=== PATIENT | female | born 2000 | race Caucasian/White ===

== ENCOUNTER 2020-06-30 15:32 | Emergency (ER) | payer OTHER ==
--- NOTE | 2020-06-30 16:09 | PCM.SN.2 ---
- Free Text/Narrative Note: Attending physician note I have seen and evaluated the patient with the advanced practice provider. 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 Since then she has not had problems. She was instructed to come to emergency department anytime she has fever. She has sore throat, mild symptoms of cough, ear fullness and fever. No other associated signs or symptoms. ROS: Reviewed and agree Focused Exam: VITAL SIGNS: Reviewed. GENERAL: Awake, conversant, GCS 15, nontoxic and well-appearing HEAD: No visible signs of trauma EYES: Pupils equal, EOM grossly intact EARS: Hearing grossly intact. MOUTH: No visible lesions, posterior pharyngeal erythema without exudates NECK: Appears supple CHEST: Breathing comfortably, clear lung sounds CARDIAC: Regular rhythm ABDOMEN: Soft, nontender, benign exam NEUROLOGIC EXAM: Awake and Alert, non-focal SKIN: No visible rashes EXTREMITIES: No deformities noted VASCULAR: Appears well perfused Assessment & Plan: Acute febrile illness in patient who has had previous cardiac repair. Reasonable to give empiric penicillin. Test for Covid.
--- NOTE | 2020-06-30 17:19 | EDM.PDOC ---
ED HPI GENERAL MEDICAL PROBLEM - General Chief Complaint: Fever Stated Complaint: FEVER Time Seen by Provider: 06/30/20 15:35 Source of Information: Reports: Patient History Limitations: Reports: No Limitations - History of Present Illness INITIAL COMMENTS - FREE TEXT/NARRATIVE: HISTORY AND PHYSICAL: History of present illness: Patient is a 19 year old female who presents to the ED with c/o fever, bilateral ear pain, sore throat and sinus congestion. She states she was told if she ever had a fever, she had to present to the ED as she has had open cardiac surgery as an infant. No cardiac complications post operatively. Patient denies any neck pain/stiffness, chills, headache, change in vision, syncope or near syncope. Denies any chest pain, back pain, shortness of breath or cough. Denies any GI or symptoms. No concerns for . Patient has been eating and drinking appropriately. Review of systems: As per history of present illness and below otherwise all systems reviewed and negative. Past medical history: As per history of present illness and as reviewed below otherwise noncontributory. Surgical history: As per history of present illness and as reviewed below otherwise noncontributory. Social history: See social history for further information Family history: As per history of present illness and as reviewed below otherwise noncontribut ory. Physical exam: General: Well developed and well nourished. Alert and orientated x 3. Nontoxic in appearance and in no acute distress. Vital signs are stable and have been reviewed by me. Nursing notes were reviewed. HEENT: Atraumatic, normocephalic, pupils equal and reactive bilaterally, negative for conjunctival pallor or scleral icterus, mucous membranes moist, left TMs normal, right TM is erythematous with dull light reflex, throat clear, neck supple, nontender, trachea midline. No drooling or trismus noted. No meningeal signs. No hot potato voice noted. Lungs: Clear to auscultation, breath sounds equal bilaterally, chest nontender. Normal work of breathing, no accessory muscles used. Heart: S1S2, regular rate and rhythm without overt murmur Abdomen: Soft, nondistended, nontender. Negative for masses or costovertebral tenderness. Skin: Intact, warm, dry. No lesions or rashes noted. Hematologic: No petechiae or purpra. Mucosa appropriate color and normal nail bed color and refill. Extremities: Atraumatic, moves all extremities per self without difficulty or deficits, negative for cords or calf pain. Neurovascular unremarkable. Neuro: Awake, alert, oriented. Cranial nerves II through XII unremarkable. Cerebellum unremarkable. Motor and sensory unremarkable throughout. Exam nonfocal. Psychiatric: Mood and affect are appropriate. Normal thought process. Answering questions appropriately. Notes: Blood cultures have been drawn due to her cardiac surgery. Negative strep and COVID screening. Treating the otitis with Augmentin. I have spoken with the patient/caregiver and discussed today's findings, in addition to providing specific details for plan of care. Reassessment at the time of disposition demonstrates that the patient is in no acute distress. The patient has remained stable throughout the entire ED visit and is without objective evidence for acute process requiring urgent intervention or hospitalization. The patient is stable for discharge, counseling was provided and we discussed in great detail signs and symptoms that would prompt them to return to the Emergency Department. Medication, follow up and supportive care measures were reviewed and discussed. Voices understanding and is agreeable to plan of care. Denies any further questions or concerns at this time. Diagnostics: COVID, Strep, BC x 2 Therapeutics: None Prescription: Augmentin Impression: Otitis Media, Right Plan: 1. Take the antibiotic as prescribed. Please use Tylenol and/or Ibuprofen as needed for pain and fever management. 2. Get plenty of Rest. Encourage fluids to prevent dehydration. 3. Please follow up with your primary care provider. Return to the ED as needed as discussed. Definitive disposition and diagnosis as appropriate pending reevaluation and rev iew of above. throat Pain Score (Numeric/FACES): 4 - Related Data Allergies Allergy/AdvReac Type Severity Reaction Status Date / Time No Known Allergies Allergy Verified 06/30/20 15:41 Home Meds: Home Meds Amoxicillin/Clavulanate K [Augmentin 875-125 MG] 1 tab PO BID 10 Days #20 tablet 06/30/20 [Rx] Past Medical History - Past Surgical History Cardiovascular Surgical History: Reports: Other (See Below) Other Cardiovascular Surgeries/Procedures: Open Heart Surgery w/2 VSD &1 ASD Social & Family History - Family History Oncologic: Reports: Brain, Breast, Lung, Skin - Tobacco Use Tobacco Use Status *Q: Never Tobacco User - Recreational Drug Use Recreational Drug Use: No ED ROS ENT - Review of Systems Review Of Systems: Comprehensive ROS is negative, except as noted in HPI. ED EXAM, ENT - Physical Exam Exam: See Below (See dictation) Course - Vital Signs Last Recorded V/S: Last Vital Signs Temp 97.3 F 06/30/20 15:38 Pulse 113 H 06/30/20 15:38 Resp 18 06/30/20 15:38 BP 137/87 06/30/20 15:38 Pulse Ox 98 06/30/20 15:38 - Orders/Labs/Meds Orders: Active Orders 24 hr Category Date Time Status CORONAVIRUS COVID-19 PCR PHL Stat Lab 06/30/20 16:10 Received CULTURE BLOOD [BC] Stat Lab 06/30/20 16:00 Received CULTURE BLOOD [BC] Stat Lab 06/30/20 16:10 Received CULTURE STREP A CONFIRMATION [RM] Stat Lab 06/30/20 16:10 Results STREP SCRN A RAPID W CULT CONF [RM] Stat Lab 06/30/20 16:10 Results Blood Culture x2 Reflex Set [OM.PC] Stat Oth 06/30/20 15:46 Ordered Labs: Laboratory Tests 06/30/20 Range/Units 16:10 SARS CoV-2 RNA Rapid VALERIO NEGATIVE (NEGATIVE) Departure - Departure Time of Disposition: 17:19 Disposition: Home, Self-Care 01 Clinical Impression: Otitis media Qualifiers: Otitis media type: suppurative Chronicity: acute Laterality: right Recurrence: non-recurrent Spontaneous tympanic membrane rupture: without spontaneous rupture Qualified Code(s): H66.001 - Acute suppurative otitis media without spontaneous rupture of ear drum, right ear - Discharge Information Prescriptions: Amoxicillin/Clavulanate K [Augmentin 875-125 MG] 1 tab PO BID 10 Days #20 tablet Instructions: Otitis Media, Adult, [id number] Referrals: PCP,None [Primary Care Provider] - Forms: ED Department Discharge Additional Instructions: The following information is given to patients seen in the emergency department who are being discharged to home. This information is to outline your options for follow-up care. We provide all patients seen in our emergency department with a follow-up referral. The need for follow-up, as well as the timing and circumstances, are variable depending upon the specifics of your emergency department visit. If you don't have a primary care physician on staff, we will provide you with a referral. We always advise you to contact your personal physician following an emergency department visit to inform them of the circumstance of the visit and for follow-up with them and/or the need for any referrals to a consulting specialist. The emergency department will also refer you to a specialist when appropriate. This referral assures that you have the opportunity for follow-up care with a specialist. All of these measure are taken in an effort to provide you with optimal care, which includes your follow-up. Under all circumstances we always encourage you to contact your private physician who remains a resource for coordinating your care. When calling for follow-up care, please make the office aware that this follow-up is from your recent emergency room visit. If for any reason you are refused follow-up, please contact the Emergency Department at and asked to speak to the emergency department charge nurse. Primary Care [address] [place] [address] [place] [address] Thank you for choosing the [facility] emergency department in [place] for your medical needs today. It was a pleasure caring for you. Today you were seen in the emergency department for fever, ear, throat and sinus pain. 1. Take the antibiotic as prescribed. Please use Tylenol and/or Ibuprofen as needed for pain and fever management. 2. Get plenty of Rest. Encourage fluids to prevent dehydration. 3. Please follow up with your primary care provider. Return to the ED as needed as discussed. Sepsis Event Note (ED) - Evaluation Sepsis Screening Result: Possible Sepsis Risk - Focused Exam Vital Signs: Vital Signs Temp Pulse Resp BP Pulse Ox 06/30/20 15:38 97.3 F 113 H 18 137/87 98 - My Orders Last 24 Hours: My Active Orders 06/30/20 15:46 Blood Culture x2 Reflex Set [OM.PC] Stat 06/30/20 16:00 CULTURE BLOOD [BC] Stat 06/30/20 16:10 CORONAVIRUS COVID-19 PCR PHL Stat CULTURE BLOOD [BC] Stat CULTURE STREP A CONFIRMATION [RM] Stat STREP SCRN A RAPID W CULT CONF [RM] Stat - Assessment/Plan Last 24 Hours: My Active Orders 06/30/20 15:46 Blood Culture x2 Reflex Set [OM.PC] Stat 06/30/20 16:00 CULTURE BLOOD [BC] Stat 06/30/20 16:10 CORONAVIRUS COVID-19 PCR PHL Stat CULTURE BLOOD [BC] Stat CULTURE STREP A CONFIRMATION [RM] Stat STREP SCRN A RAPID W CULT CONF [RM] Stat
== END 2020-06-30 17:20 | disposition home or self-care (01) ==
LOC: MW.ED 15:32
DX: H66.001 Acute suppurative otitis media without spontaneous rupture of ear drum, right ear (principal); Z20.828 Contact with and (suspected) exposure to other viral communicable diseases
CPT/HCPCS: 36415; 87040; 87081; 87880-QW; 99282; 99283; U0002

== ENCOUNTER 2020-12-02 22:04 | Emergency (ER) | payer OTHER ==
[2020-12-02] MEDS ORDERED: Amoxicillin/Clavulanate K 875-125 MG Tab PO ONE (23:05)
[2020-12-02] MEDS ORDERED: Ibuprofen 600 MG Tab PO ONE (23:05)
[2020-12-02] MEDS ORDERED: traMADol 50 MG Tab PO ONE (23:05)
--- NOTE | 2020-12-02 23:36 | EDM.PDOC ---
ED HPI GENERAL MEDICAL PROBLEM - General Chief Complaint: Bite:Animal, Insect Stated Complaint: ATTACKED BY CAT Time Seen by Provider: 12/02/20 22:30 - History of Present Illness INITIAL COMMENTS - FREE TEXT/NARRATIVE: HISTORY AND PHYSICAL: History of present illness: This is a 20-year-old female who presents ER today secondary to being assaulted by her pet cat. Patient reports that her cat was scratching her friend and she was try to remove the cat from her friend and her cat scratched her all over her arms biceps and shoulders. Patient reports that she does have a history of heart surgery when she was an infant. Patient denies any history of hypertension, diabetes, liver, lung, kidney problems. Patient reports her tetanus shots are up-to-date. Patient reports her cat has had all immunizations up-to-date including rabies. Patient reports that most of the injuries throughout her hand arms and back are from abrasions from being scratched however patient reports that there was one bite to her left biceps region. Patient has no known drug allergies. Review of systems: As per history of present illness and below otherwise all systems reviewed and negative. Past medical history: As per history of present illness and as reviewed below otherwise noncontributory. Surgical history: As per history of present illness and as reviewed below otherwise noncontributory. Social history: No reported history of drug or alcohol abuse. Family history: As per history of present illness and as reviewed below otherwise noncontributory. Physical exam: This patient was seen and evaluated during the 2019 SARS-CoV-2 novel coronavirus pandemic period. Community viral transmission is ongoing at time of this encounter and the emergency department is operating under pandemic response procedures. Constitutional: Patient is oriented to person, place, and time. Appears well- developed and well-nourished. No distress. HEENT: Moist mucous membranes Head: Normocephalic and atraumatic Eyes: Right eye exhibits no discharge. Left eye exhibits no discharge. No scleral icterus Neck: Normal range of motion. No tracheal deviation present. Cardiovascular: Normal rate and regular rhythm. Pulmonary: Effort normal, no respiratory distress. Abdominal: No distention Musculoskeletal: Normal range of motion Neurologic: Alert and oriented to person, place and time. Skin: [place], warm and dry. Psychiatric: Normal mood and affect. Behavior is normal. Judgment and thought content normal. Nursing note and vital signs have been reviewed Patient's ER physical exam is significant for multiple superficial abrasions throughout her bilateral upper extremities and hands. Patient does have an area that does have circumferential region.could be consistent with a cat bite however once again that is superficial. Patient has some superficial scratches to her left scapular region. Diagnostics: X-ray of right hand reveals no acute fracture or foreign body or osseous abnormalities. Therapeutics: Augmentin, Motrin, Ultram Assessment and plan: This is a 20-year-old female who presents ER today secondary to multiple scratches from her cat. Patient's tetanus status up-to-date. Patient's cats immunizations are all up-to-date including rabies. Patient be started on Augmentin and was given ibuprofen and Ultram here in the ED to assist with pain and discomfort. Patient's x-ray reveals no osseous abnormalities or foreign body. I have discussed with the patient the high risk of infection with cat bites and the need to start her on Augmentin. Patient will need to have a wound check in 2 days by her primary care physician. Wounds will be cleaned and irrigated and Neosporin will be applied. Reassessment at the time of disposition demonstrates that the patient is in no acute distress. The patient has remained stable throughout the entire ED visit and is without objective evidence for acute process requiring urgent intervention or hospitalization. The patient is stable for discharge, counseling is provided as documented above, discussed symptomatic treatment and specific conditions for return. I have spoken with the patient/caregiver and discussed todays findings, in addition to providing specific details for the plan of care. Questions are answered and there is agreement with the plan. Definitive disposition and diagnosis as appropriate pending reevaluation and review of above. right hand Pain Score (Numeric/FACES): 7 - Related Data Allergies Allergy/AdvReac Type Severity Reaction Status Date / Time No Known Allergies Allergy Verified 12/02/20 22:25 Home Meds: Home Meds Amoxicillin/Potassium Clav [Augmentin 875-125 Tablet] 1 each PO Q12HR 10 Days #20 tablet 12/02/20 [Rx] Ibuprofen 600 mg PO Q6HR PRN #30 tablet 12/02/20 [Rx] Past Medical History - Infectious Disease History Infectious Disease History: Reports: Influenza - Past Surgical History Cardiovascular Surgical History: Reports: Other (See Below) Other Cardiovascular Surgeries/Procedures: Open Heart Surgery w/2 VSD &1 ASD Social & Family History - Family History Family Medical History: No Pertinent Family History Oncologic: Reports: Brain, Breast, Lung, Skin - Tobacco Use Tobacco Use Status *Q: Never Tobacco User - Caffeine Use Caffeine Use: Reports: Coffee, Tea - Recreational Drug Use Recreational Drug Use: Yes Drug Use in Last 12 Months: Yes Recreational Drug Type: Reports: Marijuana/Hashish ED ROS GENERAL - Review of Systems Review Of Systems: See Below ED EXAM, ANIMAL BITE - Physical Exam Exam: See Below Course - Vital Signs Last Recorded V/S: Last Vital Signs Temp 97.2 F 12/02/20 22:26 Pulse 100 12/02/20 22:26 Resp 20 12/02/20 22:26 BP 152/87 H 12/02/20 22:26 Pulse Ox 98 12/02/20 22:26 - Orders/Labs/Meds Orders: Active Orders 24 hr Category Date Time Status Communication Order [RC] STAT Care 12/02/20 23:06 Active Hand Comp Min 3V Rt [CR] Stat Exams 12/02/20 23:05 Taken Meds: Medications Discontinued Medications Generic Name Dose Route Start Last Admin Trade Name Juan José PRN Reason Stop Dose Admin Amoxicillin/Clavulanate Potassium 1 tab 12/02/20 23:05 12/02/20 23:21 Amoxicillin/Clavulanate K 875-125 Mg Tab PO 12/02/20 23:06 1 tab ONETIME ONE Administration Ibuprofen 600 mg 12/02/20 23:05 12/02/20 23:21 Ibuprofen 600 Mg Tab PO 12/02/20 23:06 600 mg ONETIME ONE Administration Tramadol HCl 50 mg 12/02/20 23:05 12/02/20 23:21 Tramadol 50 Mg Tab PO 12/02/20 23:06 50 mg ONETIME ONE Administration Departure - Departure Time of Disposition: 23:35 Disposition: Home, Self-Care 01 Condition: Good Clinical Impression: Cat bite involving extremity, Cat scratch - Discharge Information Instructions: Animal Bite, Adult Referrals: PCP,None [Primary Care Provider] - Additional Instructions: You were seen and evaluated in the ER today secondary to multiple scratches and bites by your cat. You will be started on Augmentin to take. Please make sure you see your family physician in 2 days for wound check as all cat bites have an extremely high risk of developing into an infection despite being on ant ibiotics. You will also be given a prescription for ibuprofen to assist with pain. The following information is given to patients seen in the emergency department who are being discharged to home. This information is to outline your options for follow-up care. We provide all patients seen in our emergency department with a follow-up referral. The need for follow-up, as well as the timing and circumstances, are variable depending upon the specifics of your emergency department visit. If you don't have a primary care physician on staff, we will provide you with a referral. We always advise you to contact your personal physician following an emergency department visit to inform them of the circumstance of the visit and for follow-up with them and/or the need for any referrals to a consulting specialist. The emergency department will also refer you to a specialist when appropriate. This referral assures that you have the opportunity for follow-up care with a specialist. All of these measure are taken in an effort to provide you with optimal care, which includes your follow-up. Under all circumstances we always encourage you to contact your private physician who remains a resource for coordinating your care. When calling for follow-up care, please make the office aware that this follow-up is from your recent emergency room visit. If for any reason you are refused follow-up, please contact the [facility] Emergency Department at and asked to speak to the emergency department charge nurse. [facility] Primary [facility] [address] [place] [address] [place] [address] Sepsis Event Note (ED) - Evaluation Sepsis Screening Result: No Definite Risk - Focused Exam Vital Signs: Vital Signs Temp Pulse Resp BP Pulse Ox 12/02/20 22:26 97.2 F 100 20 152/87 H 98 - My Orders Last 24 Hours: My Active Orders 12/02/20 23:05 Hand Comp Min 3V Rt [CR] Stat 12/02/20 23:06 Communication Order [RC] STAT - Assessment/Plan Last 24 Hours: My Active Orders 12/02/20 23:05 Hand Comp Min 3V Rt [CR] Stat 12/02/20 23:06 Communication Order [RC] STAT
--- NOTE | 2020-12-02 23:36 | CR ---
INDICATION: Cat bite TECHNIQUE: Hand radiograph 3 views right COMPARISON: None FINDINGS: Bone: No acute fractures or aggressive bone lesions are identified. Joint: The carpal and metacarpal-phalangeal joints are unremarkable in appearance. The interphalangeal joints are normal in appearance. Soft tissue: Soft tissue gas is present in the thenar eminence, likely due to penetrating injury. No radiopaque foreign bodies are seen. IMPRESSION: 1. No acute osseous injuries or abnormalities are noted. Dictated by Tuan Sharpe MD @ 12/02/2020 11:34:44 PM Dictated by: Tuan Sharpe MD @ 12/02/2020 23:34:47 (Electronically Signed)
[2020-12-02] MEDS ORDERED: Bacitracin Oint 28.35 GM Tube TOP STA (23:39)
== END 2020-12-03 | disposition home or self-care (01) ==
LOC: MW.ED 22:04
DX: S41.052A Open bite of left shoulder, initial encounter (principal); S60.512A Abrasion of left hand, initial encounter; S60.511A Abrasion of right hand, initial encounter; S40.211A Abrasion of right shoulder, initial encounter; S40.812A Abrasion of left upper arm, initial encounter; S40.811A Abrasion of right upper arm, initial encounter; W55.01XA Bitten by cat, initial encounter; Y93.89 Activity, other specified
CPT/HCPCS: 73130; 99283; A9270

== ENCOUNTER 2022-02-13 11:02 | Emergency (ER) | payer OTHER ==
[2022-02-13 11:50] LABS: BLOOD UREA NITROGEN,BUN 8 mg/dL (7.0-18.0); CARBON DIOXIDE,CO2 26.2 mmol/L (21.0-32.0); CHLORIDE,CL 104 mmol/L (98-107); GLUCOSE RANDOM 96 mg/dL (74-106); SODIUM,NA 136 mmol/L (136-145)
[2022-02-13 11:57] LABS: CORONAVIRUS COVID-19 NAA NEGATIVE (NEGATIVE); INFLUENZA A NAA NEGATIVE (NEGATIVE); INFLUENZA B NAA NEGATIVE (NEGATIVE)
== END 2022-02-13 12:14 | disposition home or self-care (01) ==
LOC: MW.ED 11:02
DX: J06.9 Acute upper respiratory infection, unspecified (principal); Z20.822 Contact with and (suspected) exposure to COVID-19; Z86.16 Personal history of COVID-19; Z91.048 Other nonmedicinal substance allergy status
CPT/HCPCS: 0240U; 36415; 71045; 80053; 85025; 87651; 93005; 99285; 99283

== ENCOUNTER 2022-08-29 17:10 | Emergency (ER) | payer OTHER ==
[2022-08-29] MEDS ORDERED: Acetaminophen 500 MG Tab PO ONE (17:22)
[2022-08-29] MEDS ORDERED: Ibuprofen 600 MG Tab PO ONE (17:22)
[2022-08-29 18:18] LABS: CORONAVIRUS COVID-19 NAA NEGATIVE (NEGATIVE); INFLUENZA A NAA POSITIVE (NEGATIVE); INFLUENZA B NAA NEGATIVE (NEGATIVE)
[2022-08-29] MEDS ORDERED: Oseltamivir 75 MG Cap PO ONE (18:33)
== END 2022-08-29 19:03 | disposition home or self-care (01) ==
LOC: MW.ED 17:10
DX: J10.1 Influenza due to other identified influenza virus with other respiratory manifestations (principal); Z91.048 Other nonmedicinal substance allergy status; Z20.822 Contact with and (suspected) exposure to COVID-19
CPT/HCPCS: 0240U; 99283; A9270